=== PATIENT | female | born 1990 | race Two or more races ===

== ENCOUNTER 2017-10-23 15:00 | Inpatient (IN) | payer OTHER ==
[~2017-10-23] VITALS: Ht 154.9 cm; Wt 86.6 kg
[2017-11-13] MEDS ORDERED: PRENATAL TABLE1 EAC2 PO (13:21)
== END 2017-11-15 16:04 | disposition home or self-care (01) | DRG 775 ==
LOC: OB/GYN 11-06 15:00 → LDR 11-13 13:09 → OB/GYN 11-13 16:08
PROC: 10E0XZZ Delivery of Products of Conception, External Approach (ICD-10-PCS; principal; 2017-11-13)
PROC: 0HQ9XZZ Repair Perineum Skin, External Approach (ICD-10-PCS; 2017-11-13)
PROC: 10907ZC Drainage of Amniotic Fluid, Therapeutic from Products of Conception, Via Natural or Artificial Opening (ICD-10-PCS; 2017-11-13)
PROC: 4A033R1 Measurement of Arterial Saturation, Peripheral, Percutaneous Approach (ICD-10-PCS; 2017-11-13)
PROC: 4A1HXCZ Monitoring of Products of Conception, Cardiac Rate, External Approach (ICD-10-PCS; 2017-11-13)
DX: O70.0 First degree perineal laceration during delivery (principal); O69.81X0 Labor and delivery complicated by cord around neck, without compression, not applicable or unspecified; Z3A.41 41 weeks gestation of pregnancy; Z37.0 Single live birth

== ENCOUNTER 2022-02-06 16:14 | Outpatient (CLI) | payer OTHER ==
[~2022-02-06 16:14] MED LIST: PRENATAL TABLE1 EAC2 PO
== END 2022-02-06 17:22 | disposition home or self-care (01) ==
LOC: PRENATAL 16:14
PROVIDERS: ATTEND Obstetrics & Gynecology Maternal & Fetal Medicine
DX: O36.80X0 Pregnancy with inconclusive fetal viability, not applicable or unspecified (principal); Z36.0 Encounter for antenatal screening for chromosomal anomalies; O34.219 Maternal care for unspecified type scar from previous cesarean delivery; O14.90 Unspecified pre-eclampsia, unspecified trimester; O42.90 Premature rupture of membranes, unspecified as to length of time between rupture and onset of labor, unspecified weeks of gestation; Z3A.13 13 weeks gestation of pregnancy